=== PATIENT | female | born 1975 | race Caucasian/White ===

== ENCOUNTER 2017-03-15 04:00 | Emergency (ER) | payer OTHER ==
[~2017-03-15] VITALS: Ht 160 cm; Wt 86.2 kg
[2017-03-15 04:03] VITALS: BP 161/90
--- NOTE | 2017-03-15 04:11 | NUR ---
PT TAKEN TO BED 9
[2017-03-15] MEDS ORDERED: NACL 0.9% 1,000 ML IV ONE ×2 (04:15→05:15)
--- NOTE | 2017-03-15 04:18 | NUR ---
Dr. Kovacs evaluating patient at bedside.
--- NOTE | 2017-03-15 04:18 | NUR ---
41/F CAME IN W C/O SORE THROAT, BILATERAL EAR PAIN AND GENERALIZED BODY ACHES, GRADUAL ONSET AND PROGESSIVELY GETTING WORSE X 3 DAYS. DENIES OTC AT HOME. PT REPORTS NAUSEA, HEADACHE, DIZZINESS, DENIES COUGH, FEVER, V/D. BS 434. RX: METFORMIN. PMH: HTN, DM, MIGRAINE. ERMD AT BEDSIDE EVALUATING PATIENT. SKIN IS PINK/WARM/DRY; AAOX4 WITH EVEN AND STEADY GAIT; LUNGS CLEAR BL; HR EVEN AND REGULAR; PATIENT POSITIONED FOR COMFORT; HOB ELEVATED; BEDRAILS UP X2; BED DOWN.
[2017-03-15] MEDS ORDERED: METOCLOPRAMIDE 10 MG/2 ML INJ VIAL IVP ONE (04:25)
[2017-03-15] MEDS ORDERED: KETOROLAC 30 MG/ML VIAL IVP ONE (04:25)
[2017-03-15 04:41] LABS: BASOPHILS # (AUTO) 0.3 K/uL (0.00-0.22); BASOPHILS % (AUTO) 3.1 % (0.0-2.0); EOSINOPHILS # (AUTO) 0.2 K/uL (0-0.4); EOSINOPHILS % (AUTO) 2.5 % (0.0-4.0); HEMATOCRIT 39.1 % (36-48); HEMOGLOBIN 13.4 g/dL (12.0-16.0); LYMPHOCYTES # (AUTO) 2.9 K/uL (2.5-16.5); LYMPHOCYTES % (AUTO) 30.8 % (20.5-51.1); MEAN CORPUSCULAR HEMOGLOBIN 29 pg (27-31); MEAN CORPUSCULAR HGB CONC 34 g/dL (33-37); MEAN CORPUSCULAR VOLUME 86 fL (80-94); MONOCYTES # (AUTO) 0.7 K/uL (0.8-1.0); MONOCYTES % (AUTO) 7.4 % (1.7-9.3); NEUTROPHILS # (AUTO) 5.4 K/uL (1.8-7.7); NEUTROPHILS % (AUTO) 56.2 % (42.2-75.2); PLATELET COUNT (AUTO) 244 K/uL (140-450); RED BLOOD CELL COUNT(AUTO) 4.56 MIL/uL (4.20-5.40); RED CELL DISTRIBUTION WIDTH 11.9 % (11.6-13.7); WHITE BLOOD COUNT (AUTO) 9.5 K/uL (4.8-10.8)
[2017-03-15 05:01] LABS: ALBUMIN 3.1 g/dL (3.4-5.0); ANION GAP 7.7 (8-16); CARBON DIOXIDE 28.8 mmol/L (21-32); CREATININE 0.8 mg/dL (0.6-1.3); POTASSIUM 3.5 mmol/L (3.5-5.1); TOTAL BILIRUBIN 0.3 mg/dL (0.0-1.0)
--- NOTE | 2017-03-15 05:06 | NUR ---
SERUM GLUCOSE 468, ER MD MADE AWARE. NS IVF BOLUS ONGOING. PT REPORTS 4/10 PAIN TO THROAT, RESTING ON BED. SON AT BEDSIDE. ALL NEEDS MET AT THIS TIME.
[2017-03-15] MEDS ORDERED: PENICILLIN G BENZATHINE C-R 1.2 MU/2 ML SYR IM ONE (05:30)
[2017-03-15] MEDS ORDERED: POTASSIUM CHLORIDE 10 MEQ TABER PO ONE (05:55)
[2017-03-15] MEDS ORDERED: INSULIN HUMAN REGULAR 100 UNITS/ML 10 ML VIAL SUBQ ONE (05:55)
[2017-03-15] MEDS ORDERED: ACETAMINOPHEN EXTRA STRENGTH 500 MG TAB PO ONE (06:00)
--- NOTE | 2017-03-15 06:37 | NUR ---
0607: POC GLUCOSE 464, ER MD MADE AWARE, ORDER RECEIVED TO COVER WITH 8 UNITS REGULAR INSULIN. 0637 POC GLUCOSE 399, ER MD MADE AWARE, NO FURTHER ORDERS RECEIVED. PT ASLEEP COMFORTABLY. ALL NEEDS MET AT THIS TIME
[2017-03-15] MEDS ORDERED: DEXAMETHASONE 10 MG/ML VIAL IVP ONE (06:45)
--- NOTE | 2017-03-15 07:05 | NUR ---
Patient discharged with v/s stable. Written and verbal after care instructions given and explained. Patient alert, oriented and verbalized understanding of instructions. Ambulatory with steady gait. All questions addressed prior to discharge. ID band removed. Patient advised to follow up with PMD. Rx of REGLAN, IBUPROFEN, PREDNISONE given. Patient educated on indication of medication including possible reaction and side effects. Opportunity to ask questions provided and answered. IV removed, catheter intact and site benign. Applied folded 4x4 gauze and tape to stop bleeding.
[2017-03-15 07:09] LABS: APPEARANCE,URINE SL CLOUDY (CLEAR); BILIRUBIN,URINE NEGATIVE (NEGATIVE); BLOOD, URINE NEGATIVE (NEGATIVE); COLOR,URINE YELLOW (YELLOW); NITRITE, URINE NEGATIVE (NEGATIVE); PH,URINE 5.5 (5.0-9.0); UGLUCOSE 3+ (NEGATIVE)
[2017-03-15 07:11] VITALS: BP 124/66
[2017-03-15 07:51] LABS: RBC,URINE 0-5 (RARE) /HPF (0-5)
[2017-03-15 07:52] LABS: LEUKOCYTE ESTERASE ,URINE 1+ (NEGATIVE)
== END 2017-03-15 07:05 | disposition home or self-care (01) ==
LOC: MED 04:00
DX: J02.0 Streptococcal pharyngitis (principal); G43.909 Migraine, unspecified, not intractable, without status migrainosus; E11.65 Type 2 diabetes mellitus with hyperglycemia; E87.1 Hypo-osmolality and hyponatremia; I10 Essential (primary) hypertension
CPT/HCPCS: 36415; 80053; 81001; 81025; 82948; 83605; 85025; 87040; 87081; 87086; 87186; 87804; 96361; 96372; 96374; 96375; 99285; J0558; J1100; J1815; J1885; J2765; J7030

== ENCOUNTER 2017-05-29 16:05 | Emergency (ER) | payer OTHER ==
[~2017-05-29] VITALS: Ht 160 cm; Wt 88.5 kg
[2017-05-29 16:12] VITALS: BP 118/59
--- NOTE | 2017-05-29 16:24 | NUR ---
Patient transferred to via wheelchair. RN evaluating patient.
--- NOTE | 2017-05-29 16:29 | NUR ---
PATIENT PRESENTS TO ED WITH C/O CHEST PAIN, SORE THROAT, HEAD ACHE, NAUSEA; TOOTH INFECTION; PASS OUT X 3 TODAY;HX OF DM, HTN;RX OF CEPHALEXIN, METFORMIN.SKIN IS PINK/WARM/DRY; AAOX4 WITH EVEN AND STEADY GAIT;HR EVEN AND REGULAR;PATIENT STATES PAIN OF 10/10 AT THIS TIME; PATIENT POSITIONED FOR COMFORT; ER MD MADE AWARE OF PT STATUS.
[2017-05-29 17:33] LABS: BASOPHILS # (AUTO) 0.2 K/uL (0.00-0.22); EOSINOPHILS # (AUTO) 0.1 K/uL (0-0.4); HEMATOCRIT 41.3 % (36-48); HEMOGLOBIN 13.8 g/dL (12.0-16.0); LYMPHOCYTES # (AUTO) 0.7 K/uL (2.5-16.5); MEAN CORPUSCULAR HEMOGLOBIN 28 pg (27-31); MEAN CORPUSCULAR HGB CONC 34 g/dL (33-37); MEAN CORPUSCULAR VOLUME 84 fL (80-94); MONOCYTES # (AUTO) 0.4 K/uL (0.8-1.0); NEUTROPHILS # (AUTO) 4.5 K/uL (1.8-7.7); PLATELET COUNT (AUTO) 177 K/uL (140-450); RED BLOOD CELL COUNT(AUTO) 4.92 MIL/uL (4.20-5.40); RED CELL DISTRIBUTION WIDTH 11.7 % (11.6-13.7); WHITE BLOOD COUNT (AUTO) 5.9 K/uL (4.8-10.8)
--- NOTE | 2017-05-29 17:45 | NUR ---
PT C/O PAIN ON MOUTH;POSITIONED TO COMFORFTABLE POSITION;ER MD NOTIFIED;
[2017-05-29 17:47] LABS: ANION GAP 14.4 (8-16); CARBON DIOXIDE 25.8 mmol/L (21-32); CHLORIDE 94 mmol/L (98-107); CREATININE 0.9 mg/dL (0.6-1.3); GFR ARICAN-AMERICAN 89 mL/min (>90); GLUCOSE 352 mg/dL (74-106); POTASSIUM 3.2 mmol/L (3.5-5.1); SODIUM SERUM 131 mmol/L (136-145); UREA NITROGEN, BLOOD 8 mg/dL (7-18)
--- NOTE | 2017-05-29 17:50 | NUR ---
PT TRANSFERED TO BED 11;
[2017-05-29 17:54] LABS: ALBUMIN 3.2 g/dL (3.4-5.0); ASPARTATE AMINOTRANSFERASE 17 U/L (15-37); TOTAL BILIRUBIN 0.3 mg/dL (0.0-1.0)
[2017-05-29 17:55] LABS: ACETAMINOPHEN < 0.5 ug/ml (10-30); SALICYLATE < 2.8 mg/dL (2.8-20.0)
[2017-05-29] MEDS ORDERED: diphenhydrAMINE 50 MG/ML VIAL IVP ONE (17:55)
[2017-05-29] MEDS ORDERED: KETOROLAC 30 MG/ML VIAL IVP ONE (17:55)
[2017-05-29] MEDS ORDERED: HYDROmorphone 1 MG/ML AMP IVP ONE (17:55)
--- NOTE | 2017-05-29 18:18 | NUR ---
C/O GENERALIZED ACHES , HEADACHE, NAUSEA, PERSISTANT PRODUCTIVE COUGH, MALAISE X 1 WK-----PT ADDS HAS TOOTH INFECTION AND HAS BEEN SEEN BY DENTIST BUT WILL NOT DO WORK UNTIL BLOOD SUGARS ARE CONTROLLED. PT IS A/O X4 WITH FULL CLEAR SPEECH--MILD ACCESSORY MUSCLE USE NOTED, NARES FLARE
[2017-05-29 18:34] LABS: APPEARANCE,URINE CLEAR (CLEAR); BILIRUBIN,URINE NEGATIVE (NEGATIVE); BLOOD, URINE NEGATIVE (NEGATIVE); COLOR,URINE YELLOW (YELLOW); LEUKOCYTE ESTERASE ,URINE NEGATIVE (NEGATIVE); NITRITE, URINE NEGATIVE (NEGATIVE); UGLUCOSE 3+ (NEGATIVE)
[2017-05-29 18:40] LABS: RBC,URINE 0-5 (RARE) /HPF (0-5); WBC,URINE 0-5 (RARE) /HPF (0-5)
[2017-05-29 18:42] LABS: BARBITURATE, URINE NEG. ng/ml (NEG <=200); BENZODIAZEPINE, URINE NEG. ng/mL (NEG <=200); CANNABINOID, URINE NEG. ng/mL (NEG <=50); COCAINE, URINE NEG. ng/mL (NEG <=300); OPIATE, URINE NEG. ng/mL (NEG <=2000); PHENCYCLIDINE SCREEN,URINE NEG. ng/mL (NEG <=25)
[2017-05-29 19:13] VITALS: BP 122/72
--- NOTE | 2017-05-29 19:13 | NUR ---
Patient discharged with v/s stable. Written and verbal after care instructions given and explained. Patient alert, oriented and verbalized understanding of instructions. Ambulatory with steady gait. All questions addressed prior to discharge. ID band removed. Patient advised to follow up with PMD. Rx of VISTARIL given. Patient educated on indication of medication including possible reaction and side effects. Opportunity to ask questions provided and answered.
--- NOTE | 2017-05-29 19:14 | NUR ---
PT AWAKE ALERT SITTING ON EDGE OF GUERNEY---VERBALIZED UNDERSTANDING INSTRUCTIONS
== END 2017-05-29 19:13 | disposition home or self-care (01) ==
LOC: MED 16:05
DX: E86.0 Dehydration (principal); J11.1 Influenza due to unidentified influenza virus with other respiratory manifestations; E11.9 Type 2 diabetes mellitus without complications; I10 Essential (primary) hypertension
CPT/HCPCS: 36415; 70450; 71045; 80053; 80305; 81001; 81025; 82550; 84484; 85025; 93005; 96374; 96375; 99285; G0480; G0482; J1170; J1200; J1885

== ENCOUNTER 2020-04-02 17:45 | Emergency (ER) | payer OTHER ==
[~2020-04-02] VITALS: Ht 160 cm; Wt 90.7 kg
[2020-04-02 18:03] VITALS: BP 116/78
[2020-04-02] MEDS ORDERED: KETOROLAC 60 MG/2 ML VIAL IM ONE (18:35)
[2020-04-02 18:52] VITALS: BP 116/78
== END 2020-04-02 18:52 | disposition home or self-care (01) ==
LOC: MED 17:45
DX: R07.9 Chest pain, unspecified (principal); F41.9 Anxiety disorder, unspecified; E11.9 Type 2 diabetes mellitus without complications; I10 Essential (primary) hypertension; Z96.651 Presence of right artificial knee joint
CPT/HCPCS: 93005; 96372; 99283; J1885

== ENCOUNTER 2021-11-19 12:47 | Emergency (ER) | payer OTHER ==
[~2021-11-19] VITALS: Ht 160 cm; Wt 84.8 kg
[2021-11-19 13:06] VITALS: BP 143/54
[2021-11-19] MEDS ORDERED: NACL 0.9% 1,000 ML IV ONE ×2 (15:10→16:40)
--- NOTE | 2021-11-19 15:14 | NUR ---
PT W/C ASSISTED TO ER BED 1
--- NOTE | 2021-11-19 15:33 | NUR ---
DR. GRACE AT PT BEDSIDE FOR FURTHER EVALUATION.
--- NOTE | 2021-11-19 15:40 | NUR ---
FAMILY ASSESSMENT WORKER AT PT BEDSIDE.
--- NOTE | 2021-11-19 15:45 | NUR ---
45 Y/O FEMALE C/O LEFT FOOT PAIN S/P STEPPING ON A "METAL PIN" YESTERDAY. PT PAIN RATED 10/10. PT HAS NOT HAD TDAP VACCINE. BS AT TRIAGE 514. DENIES FEVER/CHILLS. DENIES N/V/D. PMH: DM, HTN MEDS: INSULIN NKA
[2021-11-19 15:46] LABS: BASOPHILS # (AUTO) 0.2 K/uL (0.00-0.22); BASOPHILS % (AUTO) 1.7 % (0.0-2.0); EOSINOPHILS # (AUTO) 0.1 K/uL (0-0.4); EOSINOPHILS % (AUTO) 1.4 % (0.0-4.0); HEMATOCRIT 37.9 % (36-48); HEMOGLOBIN 12.8 g/dL (12.0-16.0); LYMPHOCYTES # (AUTO) 2.4 K/uL (2.5-16.5); LYMPHOCYTES % (AUTO) 23.7 % (20.5-51.1); MEAN CORPUSCULAR HEMOGLOBIN 28 pg (27-31); MEAN CORPUSCULAR HGB CONC 34 g/dL (33-37); MONOCYTES # (AUTO) 0.7 K/uL (0.8-1.0); MONOCYTES % (AUTO) 6.9 % (1.7-9.3); NEUTROPHILS # (AUTO) 6.8 K/uL (1.8-7.7); NEUTROPHILS % (AUTO) 66.3 % (42.2-75.2); PLATELET COUNT (AUTO) 243 K/uL (140-450); RED BLOOD CELL COUNT(AUTO) 4.52 MIL/uL (4.20-5.40); RED CELL DISTRIBUTION WIDTH 12.8 % (11.6-13.7); WHITE BLOOD COUNT (AUTO) 10.2 K/uL (4.8-10.8)
[2021-11-19] MEDS ORDERED: SULFAMETH/TRIMETH DS 800/160MG 1 TAB PO ONE (15:50)
[2021-11-19 16:18] LABS: ALBUMIN 3.3 g/dL (3.4-5.0); ANION GAP 12.2 (8-16); ASPARTATE AMINOTRANSFERASE 13 U/L (15-37); CARBON DIOXIDE 28.8 mmol/L (21-32); CHLORIDE 91 mmol/L (98-107); GFR ARICAN-AMERICAN 77 mL/min (>90); SODIUM SERUM 128 mmol/L (136-145); TOTAL BILIRUBIN 0.5 mg/dL (0.0-1.0); UREA NITROGEN, BLOOD 20 mg/dL (7-18)
[2021-11-19 16:21] LABS: GLUCOSE 463 mg/dL (74-106)
[2021-11-19] MEDS ORDERED: INSULIN REGULAR, HUMAN 100 UNIT/ML VIAL SUBQ ONE (16:40)
--- NOTE | 2021-11-19 17:01 | NUR ---
PT AMBULATED TO RESTROOM FOR UA COLLECTION.
[2021-11-19] MEDS ORDERED: INSULIN REGULAR, HUMAN 100 UNIT/ML VIAL IV ONE (17:15)
[2021-11-19] MEDS ORDERED: INSULIN REGULAR, HUMAN 100 UNIT/ML VIAL IVP ONE (17:20)
--- NOTE | 2021-11-19 17:35 | NUR ---
PT RESTING IN BED, VSS, WILL CONTINUE TO MONITOR.
[2021-11-19 18:48] LABS: APPEARANCE,URINE CLEAR (CLEAR); BILIRUBIN,URINE NEGATIVE (NEGATIVE); BLOOD, URINE NEGATIVE (NEGATIVE); COLOR,URINE YELLOW (YELLOW); LEUKOCYTE ESTERASE ,URINE NEGATIVE (NEGATIVE); NITRITE, URINE POSITIVE (NEGATIVE); PH,URINE 5.5 (5.0-9.0); UGLUCOSE 3+ (NEGATIVE)
[2021-11-19] MEDS ORDERED: MORPHINE SULFATE 4 MG/ML SYR IVP ONE (19:00)
--- NOTE | 2021-11-19 19:29 | NUR ---
GAVE REPORT TO ROSSI TEE. TRANSFER OF CARE AT THIS TIME.
[2021-11-19] MEDS ORDERED: SULF-59 PO (20:02)
[2021-11-19] MEDS ORDERED: ACET-10509 PO (20:03)
[2021-11-19 20:31] VITALS: BP 131/68
--- NOTE | 2021-11-19 20:32 | NUR ---
Patient discharged with v/s stable. Written and verbal after care instructions given and explained. Patient alert, oriented and verbalized understanding of instructions. Ambulatory with steady gait. All questions addressed prior to discharge. ID band removed. Patient advised to follow up with PMD. Rx of TYLENOL & BACTRIM DS given. Patient educated on indication of medication including possible reaction and side effects. Opportunity to ask questions provided and answered.
== END 2021-11-19 20:30 | disposition home or self-care (01) ==
LOC: MED 12:47
DX: E11.69 Type 2 diabetes mellitus with other specified complication (principal); I10 Essential (primary) hypertension; Z79.4 Long term (current) use of insulin; Z79.899 Other long term (current) drug therapy
CPT/HCPCS: 36415; 71045; 80053; 81003; 81025; 82550; 82553; 82803; 82948; 83605; 84484; 85025; 87040; 87086; 90471; 90715; 93005; 96361; 96374; 96375; 99285; J1815; J2270; J7030

== ENCOUNTER 2022-10-29 11:14 | Inpatient (IN) | payer OTHER ==
[~2022-10-29] VITALS: Ht 162.6 cm; Wt 80.7 kg
[2022-10-29 11:14] VITALS: BP 135/80
[~2022-10-29 11:14] MED LIST: ACET-10509 PO; SULF-59 PO
--- NOTE | 2022-10-29 11:16 | NUR ---
PATIENT BIBA TO BED 1.
--- NOTE | 2022-10-29 11:32 | NUR ---
Patient being evaluated by physician at bedside.
[2022-10-29] MEDS ORDERED: CYCLOBENZAPRINE 10 MG TAB PO ONE (11:40)
[2022-10-29] MEDS ORDERED: MORPHINE SULFATE 10 MG/ML VIAL IVP ONE (11:40)
[2022-10-29] MEDS ORDERED: ONDANSETRON 4 MG/2 ML VIAL IVP ONE ×2 (11:40→14:30)
[2022-10-29] MEDS ORDERED: LIDOCAINE 5% 1 EA PATCH TP ONE (12:12)
[2022-10-29] MEDS: LIDOCAINE 5% 1 EA PATCH TP SCH (12:17)
[2022-10-29] MEDS ORDERED: MORPHINE SULFATE 4 MG/ML SYR IVP ONE (14:30)
[2022-10-29] MEDS ORDERED: SULFAMETH/TRIMETH DS 800/160MG 1 TAB PO ONE (14:30)
[2022-10-29] MEDS ORDERED: CYCL-711 PO (14:33)
[2022-10-29] MEDS ORDERED: IBUP-2213 PO (14:33)
[2022-10-29] MEDS ORDERED: ACET-2619 PO (14:33)
[2022-10-29] MEDS ORDERED: GABA300C PO (14:33)
[2022-10-29] MEDS ORDERED: SULF-59 PO (14:34)
[2022-10-29 15:30] LABS: BASOPHILS # (AUTO) 0.1 K/uL (0.00-0.22); BASOPHILS % (AUTO) 0.7 % (0.0-2.0); EOSINOPHILS # (AUTO) 0.3 K/uL (0-0.4); EOSINOPHILS % (AUTO) 2.6 % (0.0-4.0); HEMATOCRIT 38.5 % (36-48); HEMOGLOBIN 13.1 g/dL (12.0-16.0); LYMPHOCYTES # (AUTO) 3.4 K/uL (2.5-16.5); LYMPHOCYTES % (AUTO) 32.2 % (20.5-51.1); MEAN CORPUSCULAR HEMOGLOBIN 27 pg (27-31); MEAN CORPUSCULAR HGB CONC 34 g/dL (33-37); MEAN CORPUSCULAR VOLUME 80.8 fL (80-94); MONOCYTES # (AUTO) 0.5 K/uL (0.8-1.0); MONOCYTES % (AUTO) 4.8 % (1.7-9.3); NEUTROPHILS # (AUTO) 6.3 K/uL (1.8-7.7); NEUTROPHILS % (AUTO) 59.7 % (42.2-75.2); PLATELET COUNT (AUTO) 336 K/uL (140-450); RED BLOOD CELL COUNT(AUTO) 4.76 MIL/uL (4.20-5.40); RED CELL DISTRIBUTION WIDTH 13.5 % (11.6-13.7); WHITE BLOOD COUNT (AUTO) 10.6 K/uL (4.8-10.8)
[2022-10-29 15:52] LABS: ALBUMIN 3.7 g/dL (3.4-5.0); ANION GAP 11.4 (8-16); CARBON DIOXIDE 32.4 mmol/L (21-32); CREATININE 0.7 mg/dL (0.6-1.3); POTASSIUM 3.8 mmol/L (3.5-5.1); TOTAL BILIRUBIN 0.3 mg/dL (0.0-1.0)
[2022-10-29] MEDS ORDERED: SULFAMETH/TRIMETH DS 800/160MG 1 TAB ONE (16:31)
--- NOTE | 2022-10-29 19:28 | NUR ---
Pt report given to LENORA RICHEY. Transfer of care at this time.
--- NOTE | 2022-10-29 19:32 | NUR ---
Patient resting in bed, A/Ox4, chest rise and fall symmetrical, no s/s of distress, on monitor.
[2022-10-29] MEDS ORDERED: VANCOMYCIN PER PHARMACY MC PRN (20:10)
[2022-10-29] MEDS ORDERED: ONDANSETRON 4 MG/2 ML VIAL IVP PRN (20:10)
[2022-10-29] MEDS ORDERED: ACETAMINOPHEN 325 MG TAB PO PRN (20:10)
[2022-10-29] MEDS ORDERED: LORazepam 2 MG/ML VIAL IVP PRN (20:10)
[2022-10-29] MEDS ORDERED: VANCOMYCIN 1,000 MG VIAL ONE (20:21)
[2022-10-29] MEDS ORDERED: cefTRIAXone 1,000 MG VIAL ONE (20:21)
[2022-10-29] MEDS: NACL 0.9% 1,000 ML IV SCH (20:33)
[2022-10-29] MEDS ORDERED: VANCOMYCIN 1,000 MG in DEXTROSE 5% 250 ML IV SCH (21:00)
[2022-10-29] MEDS: MORPHINE SULFATE 2 MG/ML SYR IVP PRN (21:26)
--- NOTE | 2022-10-29 21:30 | NUR ---
Patient resting in bed, A/Ox4, chest rise and fall symmetrical, no s/s of distress, on monitor.
--- NOTE | 2022-10-29 21:34 | NUR ---
Patient will be admitted to care of Dr. Wall. Admited to Medsurg. Will go to room 122B. Belongings list completed. Report to [facility] Nurse Alfred RN. [facility] Nurse Alfred RN verbalized understanding of report, no further questions. [facility] Nurse Alfred RN stated he "will call Dr. Wall for sliding scale."
--- NOTE | 2022-10-29 22:00 | NUR ---
RECEIVED PATIENT FROM ER NURSE VIA [facility] FOR CONTINUITY OF CARE. PT IS ALERT ORIENTED X 4. ADMITTED WITH RT HIP AND LEG PAIN. NO COMPLAIN OF PAIN AT THIS TIME. PIV INTACT AND PATENT , NO S/SX OF DISTRESS NOTED
[2022-10-30] VITALS: BP 137/79
[2022-10-30] MEDS: MORPHINE SULFATE 2 MG/ML SYR IVP PRN ×6 (00:42→20:39)
[2022-10-30 04:00] VITALS: BP 123/72
[2022-10-30] MEDS: NACL 0.9% 1,000 ML IV SCH ×3 (04:17→20:30)
[2022-10-30 05:20] LABS: BASOPHILS # (AUTO) 0.1 K/uL (0.00-0.22); BASOPHILS % (AUTO) 0.7 % (0.0-2.0); EOSINOPHILS # (AUTO) 0.3 K/uL (0-0.4); HEMATOCRIT 36.8 % (36-48); HEMOGLOBIN 12.3 g/dL (12.0-16.0); LYMPHOCYTES # (AUTO) 3.2 K/uL (2.5-16.5); LYMPHOCYTES % (AUTO) 31.5 % (20.5-51.1); MEAN CORPUSCULAR HEMOGLOBIN 27 pg (27-31); MEAN CORPUSCULAR HGB CONC 33 g/dL (33-37); MEAN CORPUSCULAR VOLUME 81.5 fL (80-94); MONOCYTES # (AUTO) 0.7 K/uL (0.8-1.0); MONOCYTES % (AUTO) 6.8 % (1.7-9.3); NEUTROPHILS # (AUTO) 5.8 K/uL (1.8-7.7); PLATELET COUNT (AUTO) 289 K/uL (140-450); RED BLOOD CELL COUNT(AUTO) 4.51 MIL/uL (4.20-5.40); RED CELL DISTRIBUTION WIDTH 13.4 % (11.6-13.7); WHITE BLOOD COUNT (AUTO) 10.1 K/uL (4.8-10.8)
[2022-10-30 05:28] LABS: ALBUMIN 3.1 g/dL (3.4-5.0); ANION GAP 7.2 (8-16); CARBON DIOXIDE 34.5 mmol/L (21-32); CREATININE 0.8 mg/dL (0.6-1.3); MAGNESIUM 1.7 mg/dL (1.8-2.4); POTASSIUM 3.7 mmol/L (3.5-5.1); TOTAL BILIRUBIN 0.3 mg/dL (0.0-1.0)
[2022-10-30] MEDS: INSULIN LISPRO SLIDING SCALE 100 UNITS/ML VIAL SUBQ PRN ×3 (06:44→20:41)
[2022-10-30] MEDS: BLOOD GLUCOSE MONITORING 1 DEV DEV FS SCH ×4 (06:45→20:39)
--- NOTE | 2022-10-30 07:24 | NUR ---
ENDORSED PATIENT IN STABLE CONDITION TO AM NURSE FOR CONTINUITY OF CARE
[2022-10-30 08:00] VITALS: BP 145/82
--- NOTE | 2022-10-30 08:41 | NUR ---
PATIENT HAS BEEN SCREENED AND CATEGORIZED HIGH NUTRITION RISK. PATIENT WILL BE SEEN WITHIN 1-2 DAYS OF ADMISSION. 10/30/22-10/31/22 FNS CONSULT RECEIVED FOR WOUND/PRESSURE ULCER ON 10/30/22. MICHELLE VERONICA RD
[2022-10-30] MEDS ORDERED: VANCOMYCIN 1,000 MG in NACL 0.9% 250 ML IV SCH (09:00)
[2022-10-30] MEDS: VANCOMYCIN 1,000 MG in NACL 0.9% 250 ML IV SCH ×2 (10:09→22:17)
--- NOTE | 2022-10-30 11:57 | NUR ---
WOUND CARE NOTE: PT. ADMITTED WITH LEFT MEDIAL FOOT 1X1CM BLACK DRY SCAB WOUND , PLANTAR AREA POSITIVE FOR CHARCOT FOOT. PT. IS AAX4, PER PT. SHE HAS FOLLOW HER PODIATRY AND OBTAINED A WALKING BOOT WHICH WAS NOT FITTED CORRECTLY THAT CAUSE A BLISTER TO LEFT MEDIAL FOOT. PER. PT. SHE IS CHANGING HER INSURANCE AT THIS TIME. NO FOOT DOCTOR THAT SHE CAN FOLLOW. X-RAY TO LEFT FOOT DONE, POC DISCUSSED WITH PT. POC DISCUSSED WITH PRIMARY RN KANDY AND RECOMMEND PODIATRY CONSULT. RECOMMENDATIONS: -PAINT LEFT MEDIAL FOOT BLACK SCAB WITH BETADINE SWAB STICK BID AND NICOLE.
--- NOTE | 2022-10-30 14:24 | NUR ---
DC PLANNIN YRS OLD FEMALE PATIENT WAS ADMITTED FROM HOME WITH A DX OF OSTEOMYELITIS. PATIENT HAS A HX OF DM AND LEFT FOOT DIABETIC ULCER. LEFT FOOT XRAY SHOWED MEDIAL FOREFOOT CELLULITES , POSSIBLE OSTEOMYELITIS. RAPID COVID TEST NEGATIVE. ADMINISTERED, IVF, IV ABX VANCOMYCIN AND ROCEPHIN AND CONTINUED HOME MEDS. CONSULTED WITH WOUND CARE. DC PLAN O GO HOME WITH HOME HEALTH FOR WOUND CARE. CM TO FOLLOW Addendum: 11/02/22 at 1449 by Vonda Sandoval RN DC PLANNING: PATIENT HAS AN MRI ORDER. FAXED TO [phone]. [facility] AYDEN JACOBS [phone], SMITH [phone] AND CHIDI [phone]. [facility] MRI SPOKE WITH RODRIGO THE DIRECTOR GOVERNMENT ARRANGED TO BE DONE TOMORROW 11/03 AT 1200 NOON. ARRANGED TRANSPORT WITH [facility] WAIT AND RETURN. CM TO FOLLOW Addendum: 11/03/22 at 0927 by Vonda Sandoval RN DC PLANNING: CM SPOKE WITH DR LAMAS , STATE NO MRI NEEDED, AND PT CAN BE DC AND FOLLOW UP OUTPATIENT. STABLE FOR DISCHARGE. CM TO FOLLOW
--- NOTE | 2022-10-30 14:40 | NUR ---
10/30/22 RD INITIAL ASSESSMENT COMPLETED PLEASE REFER TO NUTRITION ASSESSMENT UNDER CARE ACTIVITY FOR ESTIMATED NUTRITIONAL NEEDS. 1. CONTINUE [facility] DIET TOLERATED 2. RD RECOMMENDS [employer]OSOURCE BID FOR WOUNDS WHICH WILL PROVIDE 120KCALS AND 30GRAMS OF PROTEIN 3. RD TO FOLLOW-UP 7 DAYS, LOW RISK MICHELLE VERONICA, RD
[2022-10-30 19:25] VITALS: BP 150/82
--- NOTE | 2022-10-30 19:30 | NUR ---
RECEIVED PT FROM DAY RN FOR CONTINUITY OF CARE. PT AWAKE,ALERT AND ORIENTED X 4. ON ROOM AIR, BREATHING EVEN AND UNLABORED.COMPLAINING OF BILATERAL HIP PAIN. NO S/SX OF DISTRESS AT THIS MOMENT. ALL SAFETY PRECAUTION IN PLACE. CALL LIGHT WITHIN REACH. WILL CONTINUE TO MONITOR.
[2022-10-30 20:00] VITALS: BP 156/83
[2022-10-31] MEDS: MORPHINE SULFATE 2 MG/ML SYR IVP PRN ×2 (00:32→04:31)
[2022-10-31] MEDS: GAUZE TP SCH ×2 (01:00→13:45)
[2022-10-31 04:00] VITALS: BP 149/74
[2022-10-31] MEDS: NACL 0.9% 1,000 ML IV SCH ×3 (04:10→20:39)
[2022-10-31] MEDS: BLOOD GLUCOSE MONITORING 1 DEV DEV FS SCH ×4 (05:50→20:37)
[2022-10-31] MEDS: INSULIN LISPRO SLIDING SCALE 100 UNITS/ML VIAL SUBQ PRN ×3 (06:23→20:43)
--- NOTE | 2022-10-31 07:10 | NUR ---
RECEIVED PATIENT FOR CONTINUATION OF CARE FROM PM NURSE.
[2022-10-31] MEDS: LIDOCAINE 5% 1 EA PATCH TP SCH (08:09)
[2022-10-31] MEDS: HYDROmorphone 1 MG/ML AMP IVP PRN ×5 (08:55→23:19)
[2022-10-31] MEDS: VANCOMYCIN 1,000 MG in NACL 0.9% 250 ML IV SCH ×2 (10:36→18:16)
[2022-10-31 16:00] VITALS: BP 132/89
[2022-10-31] MEDS: methocarbamoL 500 MG TAB PO SCH (16:26)
--- NOTE | 2022-10-31 19:30 | NUR ---
RECEIVED PT FROM MORNING SHIFT NURSE. PT IS AOX4, AMBULATORY, ABLE TO VERBALIZE NEEDS AND ABLE TO FOLLOW COMMANDS. PT IS ON CCHO DIET AND ON ROOM AIR. PT HAS IV ON RIGHT FOREARM GAUGE 20 RUNNING WITH NS AT 125ML/HR. PT HAS CHARCOT'S FOOT AND LEFT FOOT SCAB. PT COMPLAIN OF PAIN ON LEG AND NO S/S OF RESPIRATORY DISTRESS NOTED. ALL SAFETY MEASURES IMPLEMENTED. BED IN LOW POSITION, BED WHEELS ON LOCK AND CALL LIGHT WITHIN REACH.
--- NOTE | 2022-10-31 20:05 | NUR ---
PT WAS GIVEN DILAUDID DUE TO LEG PAIN WITH PAIN SCALE OF 8/10. ALL SAFETY MEASURES IMPLEMENTED. BED IN LOW POSITION, BED WHEELS ON LOCK AND CALL LIGHT WITHIN REACH.
[2022-10-31] MEDS: GABAPENTIN 100 MG CAP PO SCH (20:33)
--- NOTE | 2022-10-31 20:33 | NUR ---
ALL SCHEDULED AND PRESCRIBED MEDICATION WAS GIVEN TO PT PER MD ORDER. ALL SAFETY MEASURES IMPLEMENTED. BED IN LOW POSITION, BED WHEELS ON LOCK AND CALL LIGHT WITHIN REACH.
--- NOTE | 2022-10-31 20:43 | NUR ---
PT BLOOD GLUCOSE IS 240. HUMALOG INSULIN 4 UNITS WAS GIVEN TO PT PER MD ORDER. ALL SAFETY MEASURES IMPLEMENTED. BED IN LOW POSITION, BED WHEELS ON LOCK AND CALL LIGHT WITHIN REACH.
[2022-11-01] VITALS: BP 126/91
[2022-11-01] MEDS: GAUZE TP SCH ×2 (01:03→13:00)
[2022-11-01] MEDS: VANCOMYCIN 1,000 MG in NACL 0.9% 250 ML IV SCH ×3 (01:10→18:42)
--- NOTE | 2022-11-01 03:23 | NUR ---
NOTIFIED DR. PERALTA REGARDING PT BP OF 179/101. WILL WAIT FOR MD'S ORDER.
[2022-11-01] MEDS: HYDROmorphone 1 MG/ML AMP IVP PRN ×4 (03:30→21:57)
[2022-11-01] MEDS: NACL 0.9% 1,000 ML IV SCH ×3 (04:12→22:46)
[2022-11-01] MEDS: BLOOD GLUCOSE MONITORING 1 DEV DEV FS SCH ×4 (06:30→21:53)
[2022-11-01] MEDS: INSULIN LISPRO SLIDING SCALE 100 UNITS/ML VIAL SUBQ PRN ×3 (06:31→21:56)
--- NOTE | 2022-11-01 06:31 | NUR ---
PT BLOOD GLUCOSE IS 251. HUMALOG INSULIN 6 UNITS WAS GIVEN TO PT.
--- NOTE | 2022-11-01 07:10 | NUR ---
RECEIVED PATIENT FROM PM NURSE FOR CONTINUATION OF CARE. MARILEE SEEN AWAKE. PATIENT CARE PLAN REVIEWED, PATIENT CARE CONTINUED
--- NOTE | 2022-11-01 07:18 | NUR ---
PT IS STABLE. ENDORSED PT TO MORNING SHIFT NURSE FOR CONTINUITY OF CARE.
[2022-11-01 08:00] VITALS: BP 152/91
[2022-11-01] MEDS: methocarbamoL 500 MG TAB PO SCH ×3 (09:00→17:00)
[2022-11-01] MEDS: GABAPENTIN 100 MG CAP PO SCH ×2 (09:55→22:50)
[2022-11-01] MEDS: LIDOCAINE 5% 1 EA PATCH TP SCH ×2 (09:55→23:04)
[2022-11-01 16:00] VITALS: BP 146/92
--- NOTE | 2022-11-01 19:20 | NUR ---
ENDORSED PATIENT TO PM NURSE FOR CONTINUATION OF CARE.
[2022-11-02 00:57] VITALS: BP 160/66
--- NOTE | 2022-11-02 00:57 | NUR ---
she hit the call light , c/o pasin she rates the pain as 8 . bp 160/ 66 , pr 78 , o2 sat 95 % , rr 18 - will medicate and will cont. to monitor .
[2022-11-02] MEDS: HYDROmorphone 1 MG/ML AMP IVP PRN ×7 (01:07→21:47)
[2022-11-02] MEDS: GAUZE TP SCH ×2 (01:17→13:51)
--- NOTE | 2022-11-02 02:00 | NUR ---
SLEEPING , BUT EASILY AROUSABLE BY SOUNDS , WILL CONT. TO MONITOR
[2022-11-02] MEDS: VANCOMYCIN 1,000 MG in NACL 0.9% 250 ML IV SCH ×3 (02:49→17:22)
[2022-11-02] MEDS: NACL 0.9% 1,000 ML IV SCH ×3 (04:10→21:55)
--- NOTE | 2022-11-02 04:40 | NUR ---
PT HIT THE CALL LIGHT , PT CRYING , SHE SAYS " I 'M SO MUCH IN PAIN , SHE RATES THE PAIN 10 - BP 165/ 98 , ME 88 , O2 SAT 96 % , RR 18 - WILL MEDICATE AND WILL CONT. TO MONITOR
--- NOTE | 2022-11-02 06:00 | NUR ---
ROUNDS , NO S/SX OF ACUTE DISTRESS NOTED , WILL CONT. TO MONITOR
[2022-11-02] MEDS: INSULIN LISPRO SLIDING SCALE 100 UNITS/ML VIAL SUBQ PRN ×4 (06:59→22:10)
[2022-11-02] MEDS: BLOOD GLUCOSE MONITORING 1 DEV DEV FS SCH ×4 (06:59→22:03)
--- NOTE | 2022-11-02 07:50 | NUR ---
ENDORSED PT FOR CONT. OF CARE , AWAKE .
--- NOTE | 2022-11-02 07:55 | NUR ---
RECEIVED PT FROM NIGHT RN, PT IS AWAKE, ALERT AND ORIENTED, ON ROOM AIR, BEDSIDE COMMODE IN PLACE, IV LINE NOTED ON THE RIGHT FOREARM G. 20 WITH NS INFUSING AT 125ML/HR, PT HAS A LEFT FOOT OPEN WOUND NOTED, NO SIGN OF DISTRESS NOTED AND WILL CONTINUE TO MONITOR PT.
[2022-11-02 08:00] VITALS: BP 159/86
[2022-11-02] MEDS: methocarbamoL 500 MG TAB PO SCH ×3 (08:23→17:09)
[2022-11-02] MEDS: GABAPENTIN 100 MG CAP PO SCH ×2 (08:41→21:59)
[2022-11-02 09:24] LABS: BASOPHILS # (AUTO) 0.1 K/uL (0.00-0.22); BASOPHILS % (AUTO) 0.7 % (0.0-2.0); EOSINOPHILS # (AUTO) 0.4 K/uL (0-0.4); EOSINOPHILS % (AUTO) 5.2 % (0.0-4.0); HEMATOCRIT 34.7 % (36-48); HEMOGLOBIN 11.6 g/dL (12.0-16.0); MEAN CORPUSCULAR HEMOGLOBIN 27 pg (27-31); MEAN CORPUSCULAR HGB CONC 34 g/dL (33-37); MEAN CORPUSCULAR VOLUME 80.7 fL (80-94); MONOCYTES # (AUTO) 0.6 K/uL (0.8-1.0); MONOCYTES % (AUTO) 7.8 % (1.7-9.3); NEUTROPHILS # (AUTO) 3.9 K/uL (1.8-7.7); NEUTROPHILS % (AUTO) 49.3 % (42.2-75.2); PLATELET COUNT (AUTO) 272 K/uL (140-450); RED BLOOD CELL COUNT(AUTO) 4.29 MIL/uL (4.20-5.40)
[2022-11-02 09:54] LABS: ANION GAP 8.8 (8-16); CARBON DIOXIDE 31.4 mmol/L (21-32); CREATININE 0.7 mg/dL (0.6-1.3); POTASSIUM 4.2 mmol/L (3.5-5.1)
--- NOTE | 2022-11-02 15:03 | NUR ---
PT IS HAVING A PHYSICAL THERAPY EVALUATION NOW, PT IS WALKING IN THE HALLWAY USING WALKER WITH TWO THERAPISTS
[2022-11-02 16:00] VITALS: BP 151/81
--- NOTE | 2022-11-02 19:56 | NUR ---
ENDORSED PT NIGHT RN FOR CONTINUITY OF CARE, PT IS STABLE AT THIS TIME
[2022-11-03] VITALS: BP 142/92
[2022-11-03] MEDS: HYDROmorphone 1 MG/ML AMP IVP PRN ×4 (00:59→11:39)
[2022-11-03] MEDS: GAUZE TP SCH ×2 (01:00→13:00)
[2022-11-03] MEDS: VANCOMYCIN 1,000 MG in NACL 0.9% 250 ML IV SCH ×2 (02:56→10:00)
--- NOTE | 2022-11-03 04:01 | NUR ---
ROUNDS , PT AWAKE - SHE SAID HER PAIN IS 9 / 10 , BP 149 / 78 , IN 82 , O2 SAT 98 % , RR 18 - WILL MEDICATE , WILL CONT. TO MONITOR
[2022-11-03] MEDS: NACL 0.9% 1,000 ML IV SCH ×2 (04:10→12:23)
--- NOTE | 2022-11-03 05:06 | NUR ---
HIT THE CALL LIGHT - PER PT SHE CAN ABLE TO SLEEP MUCH , AND SHE FEELS ANXIOUS AND HER ANXIEY ESCALATES HER PAIN BECAUSE SHE HAS ON AND OFF PAIN - WILL ASK PHARMACIST IF IF IT IS SAFE TO GIVE PRN ATIVAN , INSPITE I GAVE DILAUDID TIV 53 MINS AGO . Addendum: 11/03/22 at 0512 by Kiana Troncoso RN PER PHARMACIST IF THE PT REALLY SHOWING S/SX OF ANXIETY , MAY GIVE ATIVAN . PT IS PT IS AAOX4 . Addendum: 11/03/22 at 0601 by Kiana Troncoso RN AT 0540 - BP 145/ 92 , KS 82 , O2 SAT 99 % RR 20 , SHOWING SIGNS OF AGITATION AND ANXIETY , SHE TRIED TO WATCH THE MOVIE BUT STILL ABLE TO SLEEP WELL SHE SAID SHE FEELS NOT WELL RESTED AND SHE SAID THIS PLACE IS SO NOISY . - WILL GIVE ATIVAN 0.5 MG TIV - WILL CON. TO MONITOR CALL LIGHT WITHIN REACH .
[2022-11-03] MEDS: BLOOD GLUCOSE MONITORING 1 DEV DEV FS SCH ×2 (05:50→12:12)
[2022-11-03] MEDS: INSULIN LISPRO SLIDING SCALE 100 UNITS/ML VIAL SUBQ PRN ×2 (05:51→12:25)
--- NOTE | 2022-11-03 07:25 | NUR ---
C/O PAIN BP 142 / 95 , HR 84 , RR 20 , O2 SAT 96 % - WILL MEDICATE . - WILL ENDORSE
--- NOTE | 2022-11-03 07:38 | NUR ---
ENDORSED PT . FOR CONT. OF CARE , AWAKE .
[2022-11-03 08:00] VITALS: BP 142/95
[2022-11-03] MEDS ORDERED: GABA300C PO (08:50)
[2022-11-03] MEDS ORDERED: CEPH-588 PO (08:50)
[2022-11-03] MEDS ORDERED: METH-1866 PO (08:50)
[2022-11-03] MEDS: GABAPENTIN 100 MG CAP PO SCH (11:35)
[2022-11-03] MEDS: methocarbamoL 500 MG TAB PO SCH ×2 (11:35→13:00)
[2022-11-03] MEDS: LIDOCAINE 5% 1 EA PATCH TP SCH (11:37)
[2022-11-03 12:37] VITALS: BP 142/95
--- NOTE | 2022-11-03 13:15 | NUR ---
DISCHARGE PATIENT PER PCP ORDER AFTER CLARIFIED WITH ID DOCTOR. DISCHARGE CONSENT SIGNED, DISCHARGE INSTRUCTION GIVE, AND PATIENT VERBALIZED UNDERSTAND THAT SHE NEEDS O FOLLOW UP WITH HER PCP TEJAS AFTER DISCHARGED HOME. IV ACCESS & WRIST BAND REMOVED PRIOR WHEEL PATIENT OUT.
== END 2022-11-03 13:25 | disposition home or self-care (01) | DRG 720 ==
LOC: MED 11:14 → MTU 20:11 → OBSVTOIN 20:11 → MTU 21:07
PROVIDERS: ADMIT Hospitalist; ATTEND Hospitalist
DX: A41.9 Sepsis, unspecified organism (principal); A52.16 Charcot's arthropathy (tabetic); E11.610 Type 2 diabetes mellitus with diabetic neuropathic arthropathy; L03.116 Cellulitis of left lower limb; E11.621 Type 2 diabetes mellitus with foot ulcer; L97.529 Non-pressure chronic ulcer of other part of left foot with unspecified severity; M51.16 Intervertebral disc disorders with radiculopathy, lumbar region; S93.326A Dislocation of tarsometatarsal joint of unspecified foot, initial encounter; I10 Essential (primary) hypertension; M51.26 Other intervertebral disc displacement, lumbar region; S92.812A Other fracture of left foot, initial encounter for closed fracture; X58.XXXA Exposure to other specified factors, initial encounter; Z20.822 Contact with and (suspected) exposure to COVID-19; Y93.89 Activity, other specified; Y92.89 Other specified places as the place of occurrence of the external cause; Y99.8 Other external cause status; E11.69 Type 2 diabetes mellitus with other specified complication; M86.8X7 Other osteomyelitis, ankle and foot
CPT/HCPCS: 36415; 72131; 73630; 73700; 80048; 80053; 80202; 82948; 83735; 85025; 85651; 86140; 87081; 96365; 96375; 96376; 97110; 97112; 97116; 97530; 99285; J0696; J1170; J2060; J2270; J2405; J3370; J7030; J7060

== ENCOUNTER 2023-03-26 06:40 | Emergency (ER) | payer MEDICAID, OTHER ==
[~2023-03-26] VITALS: Ht 157.5 cm; Wt 90.7 kg
[~2023-03-26 06:40] MED LIST changes: -ACET-10509 PO; +CEPH-588 PO; +GABA300C PO; +METH-1866 PO; -SULF-59 PO
[2023-03-26 06:41] VITALS: BP 165/100; PULSE 94; RESP 20; TEMP 97.4; O2SAT 98
[2023-03-26] MEDS ORDERED: KETOROLAC 30 MG/ML VIAL IVP ONE (07:00)
[2023-03-26] MEDS ORDERED: ONDANSETRON 4 MG/2 ML VIAL IVP ONE (07:00)
[2023-03-26] MEDS ORDERED: MORPHINE SULFATE 4 MG/ML SYR IVP ONE (07:00)
[2023-03-26] MEDS ORDERED: methocarbamoL 500 MG TAB PO STA (07:47)
[2023-03-26] MEDS ORDERED: GABAPENTIN 300 MG CAP PO ONE (07:50)
[2023-03-26 08:11] LABS: BASOPHILS # (AUTO) 0.1 K/uL (0.00-0.22); BASOPHILS % (AUTO) 0.6 % (0.0-2.0); EOSINOPHILS # (AUTO) 0.4 K/uL (0-0.4); EOSINOPHILS % (AUTO) 3.8 % (0.0-4.0); HEMOGLOBIN 12.2 g/dL (12.0-16.0); LYMPHOCYTES # (AUTO) 3.7 K/uL (2.5-16.5); LYMPHOCYTES % (AUTO) 32.8 % (20.5-51.1); MEAN CORPUSCULAR HEMOGLOBIN 27 pg (27-31); MEAN CORPUSCULAR HGB CONC 33 g/dL (33-37); MEAN CORPUSCULAR VOLUME 81.1 fL (80-94); MONOCYTES # (AUTO) 0.9 K/uL (0.8-1.0); MONOCYTES % (AUTO) 8.2 % (1.7-9.3); NEUTROPHILS # (AUTO) 6.2 K/uL (1.8-7.7); NEUTROPHILS % (AUTO) 54.6 % (42.2-75.2); PLATELET COUNT (AUTO) 320 K/uL (140-450); RED BLOOD CELL COUNT(AUTO) 4.57 MIL/uL (4.20-5.40); RED CELL DISTRIBUTION WIDTH 13.5 % (11.6-13.7); WHITE BLOOD COUNT (AUTO) 11.4 K/uL (4.8-10.8)
[2023-03-26 09:11] LABS: ANION GAP 15.8 (8-16); CARBON DIOXIDE 28.2 mmol/L (21-32)
[2023-03-26 09:12] LABS: CALCIUM 8.9 mg/dL (8.5-10.1); CREATININE 0.8 mg/dL (0.6-1.3)
[2023-03-26 09:24] LABS: ALBUMIN 3.1 g/dL (3.4-5.0); TOTAL BILIRUBIN 0.2 mg/dL (0.0-1.0)
[2023-03-26] MEDS ORDERED: GABA300C PO (09:55)
[2023-03-26] MEDS ORDERED: IBUP-2213 PO (09:55)
[2023-03-26] MEDS ORDERED: METH-1681 PO (09:55)
[2023-03-26] MEDS ORDERED: CEPH-588 PO (10:23)
[2023-03-26] MEDS ORDERED: BACITRACIN OINT 500 UNITS/GM PKT TP ONE ×2 (10:23→10:25)
[2023-03-26 10:44] VITALS: BP 157/87; PULSE 87; RESP 18; TEMP 98.5; O2SAT 98
== END 2023-03-26 10:44 | disposition home or self-care (01) ==
LOC: MED 06:40
DX: L03.113 Cellulitis of right upper limb (principal); E11.65 Type 2 diabetes mellitus with hyperglycemia; I10 Essential (primary) hypertension; Z79.4 Long term (current) use of insulin; Z79.899 Other long term (current) drug therapy
CPT/HCPCS: 36415; 73030; 80053; 85025; 96374; 96375; 99284; J1885; J2270; J2405

== ENCOUNTER 2023-03-28 02:14 | Emergency (ER) | payer MEDICAID ==
[~2023-03-28] VITALS: Ht 157.5 cm; Wt 90.7 kg
[~2023-03-28 02:14] MED LIST changes: +IBUP-2213 PO; +METH-1681 PO
[2023-03-28 02:15] VITALS: PULSE 103; RESP 18; TEMP 98; O2SAT 97
[2023-03-28] MEDS ORDERED: BUPIVACAINE-MPF 0.5% 30 ML VIAL INJ ONE (03:40)
[2023-03-28 05:05] VITALS: BP 152/89; PULSE 98; RESP 18; TEMP 98; O2SAT 97
== END 2023-03-28 05:05 | disposition home or self-care (01) ==
LOC: MED 02:14
DX: S91.302A Unspecified open wound, left foot, initial encounter (principal); M75.01 Adhesive capsulitis of right shoulder; L03.116 Cellulitis of left lower limb; E11.9 Type 2 diabetes mellitus without complications; I10 Essential (primary) hypertension; Z79.2 Long term (current) use of antibiotics; Z79.899 Other long term (current) drug therapy; Z79.1 Long term (current) use of non-steroidal anti-inflammatories (NSAID); X58.XXXA Exposure to other specified factors, initial encounter; Y92.89 Other specified places as the place of occurrence of the external cause; Y93.89 Activity, other specified; Y99.8 Other external cause status
CPT/HCPCS: 64450; 99284; J3490